=== PATIENT | male | born 1950 | race Hispanic/Latino ===

== ENCOUNTER → 2024-08-18 | Outpatient (CLI) | payer OTHER ==
[2024-08-18 14:32] LABS: BASOPHILS # (AUTO) 0.07 K/uL (0.00-0.20); BASOPHILS % (AUTO) 1.1 % (0.0-5.0); EOSINOPHILS # (AUTO) 0.24 K/uL (0.00-0.70); EOSINOPHILS % (AUTO) 3.7 % (0.0-8.0); HEMATOCRIT 44.4 % (42-54); IMMATURE GRANULOCYTE ABSOLUTE 0.01 K/uL (0-1); LYMPHOCYTES # (AUTO) 1.7 K/uL (1.0-4.8); LYMPHOCYTES % (AUTO) 26.5 % (21.0-51.0); MEAN CORPUSCULAR HEMOGLOBIN 31.4 pg (27.0-33.0); MEAN CORPUSCULAR HGB CONC 33.6 g/dL (32.0-36.0); MEAN CORPUSCULAR VOLUME 93.7 fL (79-99); MONOCYTES # (AUTO) 0.8 K/uL (0.1-1.0); MONOCYTES % (AUTO) 12.4 % (3.0-13.0); NEUTROPHILS # (AUTO) 3.6 K/uL (1.8-7.7); NEUTROPHILS % (AUTO) 56.1 % (40.0-77.0); PLATELET COUNT (AUTO) 146 K/uL (130-400); RED BLOOD CELL COUNT(AUTO) 4.74 MIL/uL (4.50-6.20); RED CELL DISTRIBUTION WIDTH 12.3 % (11.0-15.5); WHITE BLOOD COUNT (AUTO) 6.5 K/uL (4.8-10.8)
[2024-08-18 15:01] LABS: CREATININE 1.4 mg/dL (0.5-1.3); POTASSIUM 4.2 mmol/L (3.5-5.1)
== END | disposition home or self-care (01) ==
LOC: LAB 13:33
PROVIDERS: ATTEND Urology
DX: R31.29 Other microscopic hematuria (principal)
CPT/HCPCS: 36415; 80048; 85025

== ENCOUNTER → 2024-08-21 | Outpatient (CLI) | payer OTHER ==
[~2024-08-21] MED LIST: IOHEXOL 350 MG/ML 100ML INFUS..BTL IV ONE
--- NOTE | 2024-08-21 10:48 | HMCIMG ---
CT UROGRAM (ABD/PEL WWO) REASON: OTHER MICROSCOPIC HEMATURIA COMPARISON: None TECHNIQUE: Images are obtained from lung bases through the perineum before and after IV contrast, 100 cc Omnipaque 350. 5, 10 and 15 minute delay images were obtained followed by maximum pixel intensity projection technique, for CT urogram technique. FINDINGS: There are no focal liver lesions. Spleen and pancreas appear normal, the gallbladder has been removed. There is a large cyst upper pole right there is a 2.2 cm cyst lower pole right kidney measuring 11.8 cm. There is a 2.9 cm cyst lower pole left kidney there are no solid masses. Ureters appear unremarkable. Urinary bladder appears normal. There are normal-appearing bowel loops. There are no focal fluid collections. There is no free air or fluid. Prostate appears mildly enlarged at 5.3 x 4.6 cm. Pelvic soft tissues appear normal. There are no focal osseous lesions. The exam is otherwise unremarkable. IMPRESSION: 1. Moderate hepatic steatosis. 2. Bilateral renal cysts, largest is on the right and 11.8 cm. 3. Mildly enlarged prostate.
== END | disposition home or self-care (01) ==
LOC: RAH 08:24 → EDUNIT# 09:00
PROVIDERS: ATTEND Urology
DX: K76.0 Fatty (change of) liver, not elsewhere classified (principal); N28.1 Cyst of kidney, acquired; N40.0 Benign prostatic hyperplasia without lower urinary tract symptoms; R31.29 Other microscopic hematuria; Z90.49 Acquired absence of other specified parts of digestive tract
CPT/HCPCS: 74178; Q9967